=== PATIENT | female | born 1960 | race African-American/Black ===

== ENCOUNTER 2017-10-11 20:19 | Emergency (ER) | payer MEDICAID, OTHER ==
[~2017-10-11] VITALS: Ht 165.1 cm; Wt 111.0 kg
[2017-10-11] MEDS ORDERED: IPRATROPIUM/ALBUTEROL 0.5-3(2.5)MG/3ML NEB HHN ONE (22:30)
[2017-10-11] MEDS ORDERED: FAMOTIDINE 20MG/2ML VIAL IV ONE (22:30)
[2017-10-11] MEDS ORDERED: DIPHENHYDRAMINE 50MG/ML VIAL IV ONE (22:30)
[2017-10-11] MEDS ORDERED: METHYLPREDNISOLONE SOD SUCC 125 MG/2 ML VIAL IV ONE (22:30)
[2017-10-11 22:33] VITALS: BP 131/74
[2017-10-12] MEDS ORDERED: LORATADINE 10MG TABLET PO ONE (00:15)
== END 2017-10-12 01:24 | disposition home or self-care (01) ==
LOC: ER 21:22
DX: L50.0 Allergic urticaria (principal); J44.9 Chronic obstructive pulmonary disease, unspecified; I10 Essential (primary) hypertension; Z90.49 Acquired absence of other specified parts of digestive tract; Z88.2 Allergy status to sulfonamides
CPT/HCPCS: 94640; 96374; 96375; 99284; J1200; J2930; J3490; J7620; Z7610